=== PATIENT | female | born 2000 | race African-American/Black ===

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

== ENCOUNTER 2018-03-08 19:50 | Emergency (ER) | payer MEDICAID | END 2018-03-08 22:20 | disposition home or self-care (01) | LOC: D.ER 19:50 | DX: R51 Headache (principal); W19.XXXA Unspecified fall, initial encounter; Y93.89 Activity, other specified; Y92.89 Other specified places as the place of occurrence of the external cause ==

== ENCOUNTER 2018-09-27 20:38 | Emergency (ER) | payer MEDICAID ==
[~2018-09-27] VITALS: Ht 149.9 cm; Wt 113.2 kg
[2018-09-27 21:17] VITALS: Ht 149.9 cm; Wt 113.2 kg
[2018-09-27] MEDS ORDERED: VISTARIL25 MG PO (21:18)
[2018-09-27] MEDS ORDERED: AMITRIPTYLINE H50 MG PO (21:19)
[2018-09-27 22:49] LABS: BASOPHILS 0.1 % (0-2); EOSINOPHILS 0.7 % (0-7); HEMATOCRIT 40.1 % (36.0-48.0); HEMOGLOBIN 13.4 g/dL (12-16); IMMATURE GRANULOCYTES 0.3 % (0-5); LYMPHOCYTES 22.5 % (15-50); MCH 28.4 pg (26.0-34.0); MCHC 33.4 g/dL (31.0-37.0); MEAN PLATELET VOLUME 10.6 fL (7.4-10.4); MONOCYTES 4.7 % (2-11); NEUTROPHILS 71.7 % (40-80); PLATELET COUNT 241 10x3/uL (130-400); RBC 4.72 10x6/uL (4.00-5.40); RDW 14.9 % (11.5-14.5); WBC 8.9 10x3/uL (4.8-10.8)
[2018-09-27 23:03] LABS: ALBUMIN 3.4 g/dL (3.4-5.0); ALKALINE PHOSPHATASE 77 U/L (46-116); ALT (SGPT) 18 U/L (10-68); BILIRUBIN - TOTAL 0.57 mg/dL (0.2-1.3); CALC OSMOLALITY 279 mosm/kg (275-300); CALCIUM 8.8 mg/dL (8.5-10.1); CHLORIDE - SERUM 105 mmol/L (98-107); CREATININE - SERUM 0.7 mg/dL (0.6-1.3); GLUCOSE 96 mg/dL (74-106); POTASSIUM - SERUM 3.8 mmol/L (3.5-5.1); PROTEIN - SERUM 7.4 g/dL (6.4-8.2); SODIUM 141 mmol/L (136-145); UREA NITROGEN 11 mg/dL (7-18); eGFR NON AFRICAN AMERICAN > 90 mL/min (90-120)
[2018-09-27 23:10] LABS: AMYLASE - SERUM 53 U/L (25-115); LIPASE 92 U/L (73-393)
[2018-09-27 23:18] LABS: TROPONIN-I < 0.017 ng/mL (0.000-0.060)
[2018-09-27 23:33] LABS: HCG URINE NEGATIVE (NEGATIVE)
[2018-09-27 23:39] LABS: APPEARANCE HAZY (CLEAR); BILIRUBIN NEGATIVE (NEGATIVE); COLOR YELLOW (YELLOW); GLUCOSE NEGATIVE (NEGATIVE); KETONE NEGATIVE (NEGATIVE); NITRITE NEGATIVE (NEGATIVE); PROTEIN NEGATIVE (NEGATIVE); SPECIFIC GRAVITY 1.025 (1.005-1.020); UROBILINOGEN NORMAL (NORMAL)
[2018-09-27 23:43] LABS: BACTERIA FEW /hpf (NONE SEEN); EPITHELIAL CELLS 0-5 /hpf (0-5); RED CELLS - URINE 0-5 /hpf (0-5); WHITE CELLS - URINE 0-5 /hpf (0-5)
[2018-09-28] MEDS ORDERED: ZOFRAN ODT4 MG/UDTAB PO (01:04)
[2018-09-28] MEDS ORDERED: IMODIUM2 MG PO (01:04)
[2018-09-28 01:42] VITALS: BP 120/78
== END 2018-09-28 01:42 | disposition home or self-care (01) ==
LOC: D.ER 20:38
PROVIDERS: Family Medicine
DX: R11.10 Vomiting, unspecified (principal); R19.7 Diarrhea, unspecified

== ENCOUNTER 2018-10-26 21:59 | Emergency (ER) | payer MEDICAID ==
[~2018-10-26] VITALS: Ht 149.9 cm; Wt 108.9 kg
[~2018-10-26 21:59] MED LIST: AMITRIPTYLINE H50 MG PO; IMODIUM2 MG PO; VISTARIL25 MG PO; ZOFRAN ODT4 MG/UDTAB PO
[2018-10-26 22:08] VITALS: Ht 149.9 cm; Wt 108.9 kg
[2018-10-26] MEDS ORDERED: KEFLEX500 MG PO (22:57)
[2018-10-26 23:11] VITALS: BP 139/77
== END 2018-10-26 23:12 | disposition home or self-care (01) ==
LOC: D.ER 21:59
DX: L73.9 Follicular disorder, unspecified (principal)